=== PATIENT | female | born 1970 | race Caucasian/White ===

== ENCOUNTER → 2016-09-23 | Outpatient (CLI) | payer OTHER ==
[2016-09-23 13:51] LABS: CH 30.8; CHCM 32.5; HCT 48.7 % (34.0-46.0); HDW 2.28; HGB 15.9 gm/dL (11.4-16.0); MCH 31.1 pg (25.0-35.0); MCHC 32.7 g/dL (31.0-37.0); Mean Platelet Volume 7.4; RBC 5.13 m/uL (3.80-5.40); RDW 12.6 % (11.5-15.5); WBC 11.9 k/uL (3.8-10.6)
[2016-09-23 14:40] LABS: Follicle Stimulating Hormone 85.9 mIU/mL; Prolactin 16.7 ng/mL (3.0-18.6)
== END | disposition home or self-care (01) ==
LOC: LABWHC1 13:01
PROVIDERS: ATTEND Obstetrics & Gynecology
DX: R53.83 Other fatigue (principal); Z78.0 Asymptomatic menopausal state
CPT/HCPCS: 36415; 82670; 83001; 83002; 84146; 84439; 84443; 85027

== ENCOUNTER → 2016-12-23 | Outpatient (CLI) | payer OTHER ==
--- NOTE | 2016-12-23 14:15 | US ---
EXAMINATION TYPE: US pelvic complete DATE OF EXAM: 12/23/2016 COMPARISON: Prior pelvic ultrasound July 04, 2011 CLINICAL HISTORY: N92.1 MENORRHAGIA. Irregular cycles, missed some then had 2 in November, possible per imenopause. TECHNIQUE: TA Date of LMP: irregular EXAM MEASUREMENTS: Uterus: 8.6 x 5.0 x 5.0 cm Endometrial Stripe: 0.5 cm Right Ovary: 3.1 x 1.9 x 1.9 cm Left Ovary: 4.5 x 3.5 x 3.1 cm 1. Uterus: Anteverted 2 fundal fibroids seen, anterior fibroid = 1.1cm, posterior fibroid = 1.1cm 2. Endometrium: wnl 3. Right Ovary: wnl 4. Left Ovary: 2.3cm cyst with appearance of slightly irregular wall 5. Bilateral Adnexa: wnl 6. Posterior cul-de-sac: wnl Uterus is heterogeneous and lobulated with several well-defined and ill-defined fibroids likely prese nt. 2 well-defined oval fibroids are marked by technologist as detailed above. A slightly lobulated o therwise unremarkable 2.3 cm cyst or dominant follicle left ovary is marked by technologist. . IMPRESSION: Uterine fibroids are strongly felt present.
== END | disposition home or self-care (01) ==
LOC: RADUSWWP 13:43
PROVIDERS: ATTEND Obstetrics & Gynecology
DX: N92.1 Excessive and frequent menstruation with irregular cycle (principal)
CPT/HCPCS: 76856